=== PATIENT | male | born 1985 | race Two or more races ===

== ENCOUNTER → 2020-01-03 | Outpatient (CLI) | payer BC ==
[2020-01-03 09:02] LABS: ALANINE AMINOTRANSFERASE 36 U/L (12-78); ALKALINE PHOSPHATASE 67 U/L (46-116); ANION GAP 8 mmol/L (5-15); ASPARTATE AMINO TRANSFERASE 19 U/L (15-37); BILIRUBIN,TOTAL 0.5 MG/DL (0.2-1.0); BLOOD UREA NITROGEN 11 mg/dL (7-18); CALCIUM 9.6 MG/DL (8.5-10.1); CARBON DIOXIDE 30 MMOL/L (21-32); CHLORIDE 103 MMOL/L (98-107); CREATININE 1.2 MG/DL (0.55-1.30); POTASSIUM 3.9 MMOL/L (3.5-5.1); SODIUM 141 MMOL/L (136-145)
--- NOTE | 2020-01-03 18:28 | Diagnostic Imaging Report ---
Clinical Indication: History of chest mass Technique: IV administration nonionic contrast. Spiral acquisition obtained through the chest. Multiplanar reconstructions generated. Total dose length product 547 mGycm. CTDIvol(s) 6, 137, 11 mGy. Dose reduction achieved using automated exposure control Comparison: none Findings: There is an irregular subpleural opacity in the inferolateral left lower lobe which measures approximately 2.1 x 1 cm. In the posterolateral right lower lobe, image 37 series 6, there is a 3 mm noncalcified nodule. The posterolateral right lower lobe, more inferior, image 45/6, there is a 3 mm noncalcified nodule. There is a questionable 1 mm noncalcified nodule in the right posterior costophrenic sulcus, 54/6. There is some focal pleural thickening in the posterior left lower lobe. No infiltrates, effusions, or masses are demonstrated. Numerous prominent, ill-defined, and somewhat conglomerate lymph nodes are seen in the left hilum and subcarinal regions. Given their confluent nature, the size of individual nodes cannot really be measured. No adenopathy above the pedrito is demonstrated. These demonstrate speckled calcifications throughout. In the mid esophagus, esophageal wall appears somewhat thickened. There are also calcifications along the course of the thickened mid esophagus. These appear most likely mural, although could conceivably be within immediately surrounding nodes. The heart is normal in size. No pericardial effusion. The thyroid is unremarkable. There is mild unilateral gynecomastia on the left. No axillary or chest wall mass or adenopathy The included upper abdominal anatomy is unremarkable. The bones are unremarkable. Impression: Unusual combination of findings of wall thickening of the midesophagus with calcification of the thickened wall, and left hilar and subcarinal conglomerate lymphadenopathy likewise with calcifications. By itself, presence of a calcified mass of the esophagus is suggestive of a leiomyoma, but the lymphadenopathy is not typical of such. Differential considerations for calcified lymphadenopathy include infectious granulomatous diseases such as tuberculosis and histoplasmosis, sarcoidosis, treated lymphoma, Castleman disease, among other possibilities, but esophageal involvement is not typical of any of these entities. It is conceivable that this represents a primary calcified esophageal malignancy with regional lymph node metastases, but the pattern of [place] involvement would be extremely unusual for such. Irregular subpleural opacity in the inferolateral left lower lobe, most likely an area of scarring or atelectasis. Other noncalcified right lobe nodules. No further follow-up necessary if there is low risk for lung carcinoma. Consider 6-[address] follow-up if there are significant risk factors for lung carcinoma Findings were discussed by phone with Dr. Marte The CT scanner at [facility] is accredited by the [employer] and the scans are performed using protocols designed to limit radiation exposure to as low as reasonably achievable to attain images of sufficient resolution adequate for diagnostic evaluation.
== END | disposition home or self-care (01) ==
LOC: CAT 08:27
DX: R22.2 Localized swelling, mass and lump, trunk (principal); N62 Hypertrophy of breast; R91.8 Other nonspecific abnormal finding of lung field
CPT/HCPCS: 36415; 71260; 80053; Q9965